=== PATIENT | female | born 1945 | race Caucasian/White ===

== ENCOUNTER 2020-09-07 06:25 | Observation (INO) | payer MEDICARE, BC ==
[~2020-09-07] VITALS: Ht 163.8 cm; Wt 87.3 kg
[2020-09-07] VITALS (9 sets, daily range): BP systolic 132–173; BP diastolic 66–91
[2020-09-07 07:39] LABS: BASOPHILS % (AUTO) 0.3 % (0-1); EOSINOPHILS # (AUTO) 0.3 X10'3 (0-0.9); EOSINOPHILS % (AUTO) 2.9 % (0-6); HEMATOCRIT 36.4 % (35.0-45.0); HEMOGLOBIN 12.3 g/dl (12.0-16.0); LYMPHOCYTES # (AUTO) 1.6 X10'3 (1.1-4.8); LYMPHOCYTES % (AUTO) 13.3 % (21-51); MEAN CORPUSCULAR HEMOGLOBIN 30.4 PG (27.0-31.0); MEAN CORPUSCULAR HGB CONC 33.9 g/dL (33.0-36.5); MEAN CORPUSCULAR VOLUME 89.7 FL (78-98); MEAN PLATELET VOLUME 7.4 FL (7.4-10.4); MONOCYTES # (AUTO) 0.6 X10'3 (0-0.9); MONOCYTES % (AUTO) 5.3 % (2-12); NEUTROPHILS # (AUTO) 9.4 X10'3 (1.8-7.7); NEUTROPHILS % (AUTO) 78.2 % (42-75); PLATELET COUNT 239 X10'3 (140-440); RED BLOOD COUNT 4.06 X10'6 (4.20-5.60); RED CELL DISTRIBUTION WIDTH 13.8 % (11.5-14.5)
[2020-09-07 07:53] LABS: ALANINE AMINOTRANSFERASE 33 U/L (12-78); ALBUMIN 3.2 G/DL (3.4-5.0); ALBUMIN/GLOBULIN RATIO 0.9 (1.1-1.5); ALKALINE PHOSPHATASE 105 IU/L (46-116); ANION GAP 10 (8-16); ASPARTATE AMINO TRANSFERASE 22 U/L (10-37); BILIRUBIN,TOTAL 0.4 MG/DL (0.1-1.0); BLOOD UREA NITROGEN 23 MG/DL (7-18); BUN/CREATININE RATIO 26.7 (6.6-38.0); CALCIUM 8.5 MG/DL (8.5-10.1); CHLORIDE 107 MMOL/L (99-107); CREATININE 0.86 MG/DL (0.40-0.90); GLUCOSE 136 MG/DL (70-104); POTASSIUM 3.8 MMOL/L (3.5-5.1); SODIUM 142 MMOL/L (135-145); TOTAL CARBON DIOXIDE 25.1 MMOL/L (24-32); TOTAL PROTEIN 6.8 G/DL (6.4-8.2); eGFR 64 ML/MIN
[2020-09-07] MEDS ORDERED: acetaminophen 325mg tablet PO PRN ×2 (09:00)
[2020-09-07] MEDS ORDERED: ondansetron/PF 4mg/2ml inj IV PRN (09:00)
[2020-09-07] MEDS ORDERED: magnesium hydroxide 30ml (MOM) UD suspension PO PRN (09:00)
[2020-09-07] MEDS ORDERED: nitroGLYCERIN 0.4mg SUBLingual tab SL PRN ×2 (09:00→11:20)
[2020-09-07] MEDS ORDERED: mag hydrox/Alum hydrox/simeth 30ml oral suspension PO PRN (09:00)
[2020-09-07] MEDS ORDERED: metoprolol tartrate 1mg/ml inj IV PRN (11:20)
[2020-09-07] MEDS ORDERED: regadenoson 0.4mg/5ml syringe IV PRN (11:20)
[2020-09-07] MEDS ORDERED: aminophylline 250mg/10ml inj. IV PRN (11:20)
[2020-09-07] MEDS ORDERED: VALS1TAB77 PO (12:46)
[2020-09-07] MEDS ORDERED: ALBU8.5H8 IH (12:46)
[2020-09-07] MEDS ORDERED: OMEP-50 PO (12:46)
[2020-09-07] MEDS ORDERED: ROSU10TA28 PO (12:46)
[2020-09-07] MEDS ORDERED: METO-395 PO (12:46)
[2020-09-07] MEDS ORDERED: TIMO5SOL8 EACHEYE (12:46)
[2020-09-07] MEDS ORDERED: LEVO100T9 PO (12:46)
[2020-09-07] MEDS ORDERED: CHOL100025 PO (13:01)
[2020-09-07] MEDS ORDERED: SUCR1TAB PO (13:01)
[2020-09-07] MEDS ORDERED: CALC1CAP21 PO (13:01)
[2020-09-07] MEDS ORDERED: ZINC50TA67 PO (13:01)
[2020-09-07] MEDS ORDERED: MAGN400T28 PO (13:01)
--- NOTE | 2020-09-07 13:03 | NUR ---
[facility] ON THEIR WAY TO GET PT FOR STRESS STRESS
--- NOTE | 2020-09-07 14:10 | NUR ---
Pat to [place] at this time via wheelchair.
--- NOTE | 2020-09-07 21:00 | NUR ---
I have received report from Parth ARVIZU by telephone from ER and had the opportunity to ask questions and assume patient care once on unit.
[2020-09-07] MEDS ORDERED: MELA1TAB28 PO (21:20)
[2020-09-07] MEDS ORDERED: ACET600C PO (21:22)
[2020-09-07] MEDS ORDERED: ROSU5TAB PO (21:26)
[2020-09-07] MEDS ORDERED: sucralfate 1 gm tablet PO ONE (22:40)
[2020-09-08 02:00] VITALS: BP 149/70
[2020-09-08 06:00] VITALS: BP 139/72
--- NOTE | 2020-09-08 06:22 | NUR ---
Problems reprioritized. Patient report given, questions answered & plan of care reviewed with Palak RN.
[2020-09-08 06:37] LABS: BASOPHILS % (AUTO) 0.4 % (0-1); EOSINOPHILS # (AUTO) 0.5 X10'3 (0-0.9); EOSINOPHILS % (AUTO) 5.1 % (0-6); HEMATOCRIT 37.9 % (35.0-45.0); HEMOGLOBIN 12.9 g/dl (12.0-16.0); LYMPHOCYTES # (AUTO) 1.8 X10'3 (1.1-4.8); LYMPHOCYTES % (AUTO) 19.5 % (21-51); MEAN CORPUSCULAR HEMOGLOBIN 30.9 PG (27.0-31.0); MEAN CORPUSCULAR VOLUME 90.9 FL (78-98); MEAN PLATELET VOLUME 7.4 FL (7.4-10.4); MONOCYTES # (AUTO) 0.7 X10'3 (0-0.9); MONOCYTES % (AUTO) 7.5 % (2-12); NEUTROPHILS # (AUTO) 6.2 X10'3 (1.8-7.7); NEUTROPHILS % (AUTO) 67.5 % (42-75); PLATELET COUNT 246 X10'3 (140-440); RED BLOOD COUNT 4.17 X10'6 (4.20-5.60); RED CELL DISTRIBUTION WIDTH 14.1 % (11.5-14.5); WHITE BLOOD COUNT 9.1 X10'3 (4.5-11.0)
[2020-09-08 07:01] LABS: ALBUMIN 3.1 G/DL (3.4-5.0); ANION GAP 9 (8-16); BLOOD UREA NITROGEN 13 MG/DL (7-18); BUN/CREATININE RATIO 17.3 (6.6-38.0); CALCIUM 8.4 MG/DL (8.5-10.1); CHLORIDE 105 MMOL/L (99-107); CREATININE 0.75 MG/DL (0.40-0.90); GLUCOSE 104 MG/DL (70-104); POTASSIUM 3.6 MMOL/L (3.5-5.1); SODIUM 141 MMOL/L (135-145); TOTAL CARBON DIOXIDE 26.8 MMOL/L (24-32); eGFR 75 ML/MIN
[2020-09-08 07:17] VITALS: BP_SYST 139
[2020-09-08] MEDS ORDERED: pantoprazole 40mg Tablet.DR PO SCH (07:30)
[2020-09-08] MEDS ORDERED: aspirin 81mg tablet.DR PO SCH (08:00)
[2020-09-08] MEDS ORDERED: HYDROchlorothiazide 12.5mg capsule PO SCH (08:00)
[2020-09-08] MEDS ORDERED: losartan 50mg tablet PO SCH (08:00)
[2020-09-08] MEDS ORDERED: levoTHYROXINE 100mcg tablet PO SCH (08:00)
[2020-09-08] MEDS ORDERED: atorvastatin 20mg tablet PO SCH (08:00)
[2020-09-08] MEDS ORDERED: metoprolol succinate 25mg (24-HOUR) SR. Tablet PO SCH (08:00)
[2020-09-08] MEDS ORDERED: timolol XE 0.5% ophth GEL forming sol 5ml EACHEYE SCH (08:00)
--- NOTE | 2020-09-08 12:11 | NUR ---
Pt was stable for discharging per physician order. Her telemetry and PIV removed with no redness or inflammation at the site. All educations and instructions given to the patient and she was able to verbalize back. All her valuable belongings gathered by the pt and wheeled to the lobby. She got in to her daughter's private car.
[2020-09-08] MEDS ORDERED: sucralfate 1 gm tablet PO SCH (21:00)
== END 2020-09-08 10:40 | disposition home or self-care (01) ==
LOC: ER 06:26 → ED HOLD 09:02 → EDBEDREQ 20:30 → PCU 3S 21:10
PROVIDERS: ADMIT Internal Medicine; ATTEND Internal Medicine
DX: R07.89 Other chest pain (principal); I44.7 Left bundle-branch block, unspecified; Z90.710 Acquired absence of both cervix and uterus; Z98.890 Other specified postprocedural states; Z79.899 Other long term (current) drug therapy; Z87.891 Personal history of nicotine dependence; Z88.2 Allergy status to sulfonamides; Z88.5 Allergy status to narcotic agent
CPT/HCPCS: 36415; 71045; 78452; 80048; 80053; 83880; 84443; 84484; 85025; 87081; 93005; 93017; 99285; A9500; G0378

== ENCOUNTER 2020-10-24 08:35 | Day surgery (SDC) | payer MEDICARE, BC ==
[2020-10-19 14:04] LABS: BASOPHILS % (AUTO) 0.5 % (0-1); EOSINOPHILS # (AUTO) 0.3 X10'3 (0-0.9); EOSINOPHILS % (AUTO) 3.2 % (0-6); HEMATOCRIT 39.9 % (35.0-45.0); HEMOGLOBIN 13.1 g/dl (12.0-16.0); LYMPHOCYTES # (AUTO) 2.1 X10'3 (1.1-4.8); LYMPHOCYTES % (AUTO) 24.2 % (21-51); MEAN CORPUSCULAR HGB CONC 32.9 g/dL (33.0-36.5); MEAN CORPUSCULAR VOLUME 91.3 FL (78-98); MEAN PLATELET VOLUME 7.1 FL (7.4-10.4); MONOCYTES # (AUTO) 0.6 X10'3 (0-0.9); NEUTROPHILS # (AUTO) 5.5 X10'3 (1.8-7.7); NEUTROPHILS % (AUTO) 65.1 % (42-75); PLATELET COUNT 274 X10'3 (140-440); RED BLOOD COUNT 4.37 X10'6 (4.20-5.60); RED CELL DISTRIBUTION WIDTH 14.3 % (11.5-14.5); WHITE BLOOD COUNT 8.5 X10'3 (4.5-11.0)
[2020-10-19 14:16] LABS: PARTIAL THROMBOPLASTIN TIME 25 SECONDS (22-32)
[2020-10-19 14:19] LABS: ALANINE AMINOTRANSFERASE 37 U/L (12-78); ALBUMIN 3.7 G/DL (3.4-5.0); ALKALINE PHOSPHATASE 103 IU/L (46-116); ANION GAP 9 (8-16); ASPARTATE AMINO TRANSFERASE 23 U/L (10-37); BILIRUBIN,TOTAL 0.5 MG/DL (0.1-1.0); BLOOD UREA NITROGEN 20 MG/DL (7-18); BUN/CREATININE RATIO 21.7 (6.6-38.0); CALCIUM 8.5 MG/DL (8.5-10.1); CHLORIDE 105 MMOL/L (99-107); CREATININE 0.92 MG/DL (0.40-0.90); GLUCOSE 112 MG/DL (70-104); SODIUM 142 MMOL/L (135-145); TOTAL CARBON DIOXIDE 28.5 MMOL/L (24-32); TOTAL PROTEIN 7.3 G/DL (6.4-8.2); eGFR 60 ML/MIN
[2020-10-24] VITALS (13 sets, daily range): BP systolic 121–146; BP diastolic 54–77
[~2020-10-24] VITALS: Ht 162.6 cm; Wt 81.8 kg
[~2020-10-24 08:35] MED LIST: ACET600C PO; ALBU8.5H17 IH; CALC1CAP21 PO; CHOL100025 PO; LEVO100T9 PO; MAGN400T28 PO; MELA1TAB28 PO; METO-395 PO; OMEP-50 PO; ROSU5TAB PO; SUCR1TAB PO; TIMO5SOL8 EACHEYE; VALS1TAB77 PO; ZINC50TA67 PO
[2020-10-24] MEDS ORDERED: normal saline 1,000 ML IV SCH (09:00)
[2020-10-24] MEDS ORDERED: LORazepam 0.5 MG tablet PO PRN (09:00)
[2020-10-24] MEDS ORDERED: diphenhydrAMINE 25mg capsule PO PRN (09:00)
[2020-10-24] MEDS ORDERED: nitroGLYCERIN 0.4mg SUBLingual tab SL PRN (09:00)
[2020-10-24] MEDS ORDERED: LACT1CAP65 PO (09:26)
[2020-10-24] MEDS ORDERED: ACET-2971 PO (09:26)
[2020-10-24] MEDS ORDERED: KRIL500C PO (09:26)
[2020-10-24] MEDS ORDERED: UBID100C16 PO (09:26)
[2020-10-24] MEDS ORDERED: CRAN250T2 PO (09:26)
[2020-10-24] MEDS ORDERED: MAGN250T11 PO (09:26)
[2020-10-24] MEDS ORDERED: METH500T4 PO (09:26)
[2020-10-24] MEDS ORDERED: MELA3CAP2 PO (09:26)
[2020-10-24] MEDS ORDERED: POME250C2 PO (09:26)
[2020-10-24] MEDS ORDERED: ASPI81TA52 PO (09:26)
[2020-10-24] MEDS ORDERED: fentaNYL/PF 50MCG/1 ML 2ML syringe ONE (09:49)
[2020-10-24] MEDS ORDERED: iohexol 350 MG/ML 50ML vial IV ONE (09:49)
[2020-10-24] MEDS ORDERED: iohexol 350MG/ML 100ml bottle IV ONE (09:49)
[2020-10-24] MEDS ORDERED: nitroGLYCERIN-Tridil 50MG/D5W 250 ML IV ONE (09:49)
[2020-10-24] MEDS ORDERED: LIDOcaine 1% (10mg/ml)w/preservative injection 20ml MDV ONE (09:49)
[2020-10-24] MEDS ORDERED: midazolam 1 mg/ML 2ml injection ONE ×2 (09:49→10:26)
[2020-10-24] MEDS ORDERED: HYDROcodone/acetaminophen 10/325mg tab PO PRN (11:05)
[2020-10-24] MEDS ORDERED: proCHLORperazine 10 MG/2 ml inj IV PRN (11:05)
[2020-10-24] MEDS ORDERED: OXAZEpam 15mg capsule PO PRN (11:05)
[2020-10-24] MEDS ORDERED: normal saline 1000ml 1,000 ML IV SCH (11:05)
[2020-10-24] MEDS ORDERED: HYDROcodone/acetaminophen 5mg/325mg tablet PO PRN (11:05)
[2020-10-24] MEDS ORDERED: ondansetron/PF 4mg/2ml inj IV PRN (11:05)
[2020-10-24] MEDS ORDERED: acetaminophen 325mg tablet PO PRN (11:05)
== END 2020-10-24 17:55 | disposition home or self-care (01) ==
LOC: SSTAY O 08:35
PROVIDERS: ATTEND Internal Medicine Cardiovascular Disease
DX: R94.39 Abnormal result of other cardiovascular function study (principal); I25.10 Atherosclerotic heart disease of native coronary artery without angina pectoris; I10 Essential (primary) hypertension; K21.9 Gastro-esophageal reflux disease without esophagitis; H40.9 Unspecified glaucoma; E03.9 Hypothyroidism, unspecified; I42.9 Cardiomyopathy, unspecified; E78.5 Hyperlipidemia, unspecified; M47.892 Other spondylosis, cervical region; Z90.710 Acquired absence of both cervix and uterus; Z79.01 Long term (current) use of anticoagulants; Z79.899 Other long term (current) drug therapy; Z87.891 Personal history of nicotine dependence
CPT/HCPCS: 36415; 71046; 80053; 85025; 85610; 85730; 93458; 99152; C1760; C1769; J1644; J2001; J2250; J3010; J7030; Q0163; Q9967; 99153; A4620; A6258; J3490

== ENCOUNTER 2023-02-12 14:03 | Emergency (ER) | payer MEDICARE, BC ==
[~2023-02-12] VITALS: Ht 162.6 cm; Wt 74.1 kg
[~2023-02-12 14:03] MED LIST changes: +ACET-2971 PO; -ALBU8.5H17 IH; +ASPI81TA52 PO; +CRAN250T2 PO; +KRIL500C PO; +LACT1CAP65 PO; +MAGN250T11 PO; -MAGN400T28 PO; +MAGN400T56 PO; +MELA3CAP2 PO; +METH500T4 PO; -OMEP-50 PO; +OMEP20CA16 PO; +POME250C2 PO; +UBID100C16 PO
[2023-02-12 15:05] LABS: BASOPHILS % (AUTO) 0.5 % (0-1); EOSINOPHILS # (AUTO) 0.4 X10'3 (0-0.9); EOSINOPHILS % (AUTO) 5.2 % (0-6); HEMOGLOBIN 13.4 g/dl (12.0-16.0); MEAN CORPUSCULAR HEMOGLOBIN 30.6 PG (27.0-31.0); MEAN CORPUSCULAR HGB CONC 32.7 g/dL (33.0-36.5); MEAN CORPUSCULAR VOLUME 93.6 FL (78-98); MONOCYTES # (AUTO) 0.6 X10'3 (0-0.9); MONOCYTES % (AUTO) 7.1 % (2-12); NEUTROPHILS # (AUTO) 4.8 X10'3 (1.8-7.7); NEUTROPHILS % (AUTO) 61.2 % (42-75); PLATELET COUNT 217 X10'3 (140-440); RED BLOOD COUNT 4.38 X10'6 (4.20-5.60); RED CELL DISTRIBUTION WIDTH 14.8 % (11.5-14.5); WHITE BLOOD COUNT 7.9 X10'3 (4.5-11.0)
[2023-02-12 15:33] LABS: ALANINE AMINOTRANSFERASE 27 U/L (12-78); ALBUMIN 3.7 G/DL (3.4-5.0); ALBUMIN/GLOBULIN RATIO 1.1 (1.1-1.5); ALKALINE PHOSPHATASE 97 IU/L (46-116); ANION GAP 11 (8-16); ASPARTATE AMINO TRANSFERASE 19 U/L (10-37); BILIRUBIN,TOTAL 0.5 MG/DL (0.1-1.0); BLOOD UREA NITROGEN 29 MG/DL (7-18); BUN/CREATININE RATIO 31.9 (10.0-20.0); CALCIUM 8.5 MG/DL (8.5-10.1); CHLORIDE 105 MMOL/L (99-107); CREATININE 0.91 MG/DL (0.40-0.90); GLUCOSE 112 MG/DL (70-104); POTASSIUM 3.5 MMOL/L (3.5-5.1); SODIUM 142 MMOL/L (135-145); TOTAL CARBON DIOXIDE 26.5 MMOL/L (24-32); TOTAL PROTEIN 7.2 G/DL (6.4-8.2); eCRCL 44 ML/MIN; eGFR 60 ML/MIN
[2023-02-12 15:41] LABS: PRO BRAIN NATRIURETIC PEPTIDE 63 PG/ML (0-450)
[2023-02-12 16:41] LABS: BILIRUBIN,URINE NEGATIVE (Neg); CLARITY,URINE CLEAR (Clear); COLOR,URINE YELLOW (Yellow); GLUCOSE, URINE NEGATIVE (Neg); KETONES,URINE NEGATIVE (Neg); LEUKOCYTE ESTERASE ,URINE NEGATIVE (Neg); NITRITES, URINE NEGATIVE (Neg); OCCULT BLOOD,URINE NEGATIVE (Neg); PROTEIN,URINE NEGATIVE (Neg); UROBILINOGEN,URINE 0.2 E.U/dL (0.2-1.0)
[2023-02-12 16:56] LABS: UA COLLECTION TYPE CLN CATCH MIDSTREAM
[2023-02-12] MEDS ORDERED: normal saline 1000ml 1,000 ML IV ONE (17:05)
[2023-02-12 17:44] LABS: D-DIMER 0.39 MG/L FEU (0-0.50)
[2023-02-12 18:43] VITALS: BP 120/66; PULSE 60; RESP 18; TEMP 98.6; O2SAT 98
== END 2023-02-12 19:58 | disposition home or self-care (01) ==
LOC: ER 14:04
DX: N17.9 Acute kidney failure, unspecified (principal); R42 Dizziness and giddiness; E86.0 Dehydration; Z88.2 Allergy status to sulfonamides; Z88.5 Allergy status to narcotic agent; Z79.899 Other long term (current) drug therapy
CPT/HCPCS: 36415; 71045; 80053; 81003; 83880; 84484; 85025; 85379; 93005; 96360; 99285; J7030